=== PATIENT | female | born 1970 | race Caucasian/White ===

== ENCOUNTER 2016-11-02 12:20 | Inpatient (IN) | payer MEDICAID ==
[~2016-11-02] VITALS: Ht 172.7 cm; Wt 63.9 kg
[~2016-11-02 12:20] MED LIST: BACITRACIN 50,000 UNITS INJ IRRIG ONE
[2016-11-02] MEDS ORDERED: ONDANSETRON ODT 4 MG TAB ONE (14:20)
[2016-11-02] MEDS ORDERED: MORPHINE 4 MG/ML SYR ONE ×2 (14:20→15:54)
[2016-11-02] MEDS ORDERED: SODIUM CHLORIDE 0.9% 1,000 ML IV SCH (16:50)
[2016-11-02 16:59] VITALS: BP_SYST 130; RESP 18; TEMP 98
[2016-11-02 17:41] VITALS: Ht 172.7 cm; Wt 63.9 kg
[2016-11-02] MEDS: MORPHINE 2 MG/ML SYR IV PRN (18:37)
[2016-11-02] MEDS ORDERED: MIDAZOLAM 2 MG/2 ML INJ IV ONE (18:40)
[2016-11-02] MEDS ORDERED: LIDOCAINE 1% BUFFERED 1 ML SYR INTRADERM PRN (18:40)
[2016-11-02] MEDS ORDERED: GLYCOPYRROLATE 0.2 MG/ML VIAL IV ONE (18:40)
[2016-11-02] MEDS ORDERED: CEFAZOLIN 2,000 MG in SODIUM CHLORIDE 0.9% 100 ML IV ONE (19:40)
[2016-11-02 19:54] VITALS: BP_SYST 125; RESP 16; TEMP 98.6
[2016-11-02] MEDS: clonazePAM 0.5 MG TAB PO SCH (21:42)
[2016-11-02] MEDS: AMITRIPTYLINE 75 MG TAB PO SCH (21:42)
[2016-11-02] MEDS: TOPIRAMATE 100 MG TAB PO SCH (21:42)
[2016-11-02 22:36] VITALS: BP_SYST 114; RESP 16; TEMP 98.4
[2016-11-03] VITALS (22 sets, daily range): BP systolic 110–146; RESP 12–25; TEMP 98–100
[2016-11-03] MEDS: MORPHINE 2 MG/ML SYR IV PRN (04:41)
[2016-11-03] MEDS: clonazePAM 0.5 MG TAB PO SCH ×5 (06:00→22:47)
[2016-11-03] MEDS ORDERED: MIDAZOLAM 2 MG/2 ML INJ ONE (06:11)
[2016-11-03] MEDS: LACT RINGERS 1,000 ML IV SCH ×2 (06:15→20:41)
[2016-11-03] MEDS ORDERED: ONDANSETRON 4 MG VIAL IV PRN ×2 (08:00→08:05)
[2016-11-03] MEDS ORDERED: MORPHINE 4 MG/ML SYR IV PRN ×2 (08:00→08:05)
[2016-11-03] MEDS ORDERED: MORPHINE 2 MG/ML SYR IV PRN ×2 (08:00→08:05)
[2016-11-03] MEDS ORDERED: OXYCODONE 5 MG TAB PO PRN (08:05)
[2016-11-03] MEDS ORDERED: MEPERIDINE 25 MG/ML IV PRN (08:05)
[2016-11-03] MEDS ORDERED: DILAUDID 1 MG/ML AMP IV PRN (08:05)
[2016-11-03] MEDS: ENOXAPARIN 40 MG/0.4 ML SYR SUBQ SCH (08:47)
[2016-11-03] MEDS: TOPIRAMATE 100 MG TAB PO SCH ×2 (10:24→20:42)
[2016-11-03] MEDS: CEFAZOLIN 2,000 MG in SODIUM CHLORIDE 0.9% 100 ML IV SCH ×2 (12:43→19:08)
[2016-11-03] MEDS: AMITRIPTYLINE 75 MG TAB PO SCH (20:42)
[2016-11-04] VITALS (7 sets, daily range): BP systolic 101–155; RESP 16–20; TEMP 98–100.1
[2016-11-04] MEDS: CEFAZOLIN 2,000 MG in SODIUM CHLORIDE 0.9% 100 ML IV SCH ×2 (01:52→06:10)
[2016-11-04] MEDS ORDERED: ENOXAPARIN 40 MG/0.4 ML SYR SUBQ SCH (06:00)
[2016-11-04] MEDS: clonazePAM 0.5 MG TAB PO SCH ×5 (06:13→21:51)
[2016-11-04] MEDS: TOPIRAMATE 100 MG TAB PO SCH ×2 (09:05→21:50)
[2016-11-04] MEDS: ENOXAPARIN 40 MG/0.4 ML SYR SUBQ SCH (09:06)
[2016-11-04] MEDS: PHENYTOIN 100 MG CAP PO SCH (13:35)
[2016-11-04] MEDS ORDERED: MISSING DOSE XX ONE (21:35)
[2016-11-04] MEDS: TOLTERODINE LA 2 MG CAP PO SCH (21:50)
[2016-11-04] MEDS: AMITRIPTYLINE 75 MG TAB PO SCH (21:51)
[2016-11-05 03:54] VITALS: BP_SYST 132; RESP 18; TEMP 98.8
[2016-11-05] MEDS: clonazePAM 0.5 MG TAB PO SCH ×5 (06:24→23:15)
[2016-11-05] MEDS: LACT RINGERS 1,000 ML IV SCH (06:33)
[2016-11-05 08:00] VITALS: BP_SYST 104; RESP 18; TEMP 98.5
[2016-11-05] MEDS ORDERED: MISSING DOSE XX ONE (08:20)
[2016-11-05] MEDS: PHENYTOIN 100 MG CAP PO SCH (10:13)
[2016-11-05] MEDS: TOPIRAMATE 100 MG TAB PO SCH ×2 (10:13→20:04)
[2016-11-05] MEDS: ENOXAPARIN 40 MG/0.4 ML SYR SUBQ SCH (10:15)
[2016-11-05 11:02] VITALS: BP_SYST 102; RESP 18; TEMP 98.6
[2016-11-05 15:23] VITALS: BP_SYST 98; RESP 18; TEMP 98.4
[2016-11-05 19:14] VITALS: BP_SYST 99; RESP 16; TEMP 98.5
[2016-11-05] MEDS: AMITRIPTYLINE 75 MG TAB PO SCH (20:04)
[2016-11-05] MEDS: TOLTERODINE LA 2 MG CAP PO SCH (20:04)
[2016-11-05 23:16] VITALS: BP_SYST 103; RESP 16; TEMP 98.7
[2016-11-06 03:28] VITALS: BP_SYST 93; RESP 16; TEMP 98.6
[2016-11-06] MEDS: clonazePAM 0.5 MG TAB PO SCH ×4 (06:41→18:56)
[2016-11-06 07:35] VITALS: BP_SYST 96; RESP 18; TEMP 99
[2016-11-06] MEDS: PHENYTOIN 100 MG CAP PO SCH (07:52)
[2016-11-06] MEDS: TOPIRAMATE 100 MG TAB PO SCH (07:56)
[2016-11-06] MEDS: ENOXAPARIN 40 MG/0.4 ML SYR SUBQ SCH (07:56)
[2016-11-06] MEDS ORDERED: POLYETHYLENE GLYCOL 17 GM PACKET PO SCH (10:15)
[2016-11-06 11:00] VITALS: BP_SYST 92; RESP 18; TEMP 98.1
[2016-11-06 15:30] VITALS: BP_SYST 98; RESP 18; TEMP 98.5
[2016-11-06 16:06] VITALS: BP_SYST 98; RESP 18; TEMP 98.5
== END 2016-11-06 19:11 | DRG 481 ==
LOC: ENRESERVTM → ENRESERVDT → ER 12:20 → ENPENDDIS 15:54 → EMR 15:54 → 2NO 16:28
PROVIDERS: ADMIT Internal Medicine; ATTEND Internal Medicine
PROC: 0QS606Z Reposition Right Upper Femur with Intramedullary Internal Fixation Device, Open Approach (ICD-10-PCS; principal; 2016-11-03 07:07)
DX: S72.144A Nondisplaced intertrochanteric fracture of right femur, initial encounter for closed fracture (principal); I69.951 Hemiplegia and hemiparesis following unspecified cerebrovascular disease affecting right dominant side; W01.0XXA Fall on same level from slipping, tripping and stumbling without subsequent striking against object, initial encounter; Y93.9 Activity, unspecified; Y92.002 Bathroom of unspecified non-institutional (private) residence as the place of occurrence of the external cause; Z72.0 Tobacco use; F41.9 Anxiety disorder, unspecified; R91.1 Solitary pulmonary nodule; G40.909 Epilepsy, unspecified, not intractable, without status epilepticus; N31.9 Neuromuscular dysfunction of bladder, unspecified
CPT/HCPCS: 36415; 76000; 80053; 80185; 81001; 85025; 93005; 94799; 96372; 96374; 99222; 99232; 99239